=== PATIENT | male | born 1945 | race Caucasian/White ===

== ENCOUNTER → 2017-01-04 | Outpatient (CLI) | payer BC ==
[~2017-01-04] MED LIST: FSM70 PO; OMEG10007 PO; OPTIRAY 320 IV PRN; VIT; VITAMIN E PO; vitamin D PO
--- NOTE | 2017-01-04 12:03 | DIAGNOSTIC IMAGING REPORT ---
ABD/PELVIS COMBO CLINICAL HISTORY: 71 years-old Male presenting with HX RENAL CA, F/U. TECHNIQUE: Multidetector CT of the abdomen and pelvis was performed before and after the administration of intravenous contrast. IV contrast: 93 mL of Optiray 320. A dose lowering technique was used consistent with the principles of ALARA (as low as reasonably achievable). COMPARISON: 01/16/2016. CT DOSE (mGy.cm): The estimated cumulative dose is 1122.53 mGycm. FINDINGS: Ship/Rec/Doc Control topogram: Cholecystectomy clips noted. Lung bases: Dependent groundglass opacity likely atelectasis. Old calcified granuloma at the left lung base. Normal heart size. No pericardial or pleural effusion. Liver: Normal morphology. Small subcapsular hypodensity medially at the inferior right hepatic lobe may be postsurgical in etiology from retraction injury (series 5 image 147). No liver lesion. Patent hepatic vasculature. Biliary: Mild central intrahepatic or ductal prominence. No extra hepatic biliary ductal dilatation. This may be compatible with a reservoir effect in the post cholecystectomy state. Gallbladder surgically absent. Pancreas: Normal. Spleen: Scattered parenchymal calcifications likely indicate prior granulomatous disease. Adrenal glands: Nodular thickening of the left adrenal gland, nonspecific. Right adrenal gland normal. Kidneys and ureters: No nephrolithiasis. Cortical defect at the anterior aspect of the interpolar region of the right kidney compatible with postsurgical changes from partial right nephrectomy. No evidence of residual or recurrent disease. No new renal mass. Tiny hypodensity in the left kidney is too small to characterize but likely cyst. No hydronephrosis. Bladder: Apparent bladder wall thickening at the dome. This may be due to underdistention or suggestive of chronic outlet obstruction. Pelvic organs: Prostate enlargement likely secondary to benign prostatic hyperplasia. Bowel: Suture margin noted in the sigmoid colon from prior partial colectomy. Limited diverticulosis in the descending colon. Small bowel anastomosis noted in the right mid abdomen, which is widely patent. No bowel obstruction. Peritoneal cavity: No free fluid or intraperitoneal gas. Vasculature: Aorta and IVC patent and normal in caliber. Lymph nodes: No enlarged lymph nodes in the abdomen or pelvis. Abdominal wall: Postsurgical changes in the right upper quadrant of the ventral abdominal wall. Musculoskeletal: Degenerative changes of the spine. Sclerosis of the left pubis subjacent to the pubic symphysis unchanged and likely degenerative in etiology. IMPRESSION: 1. Postsurgical changes of partial right nephrectomy are no evidence of residual or recurrent disease. No lymphadenopathy. 2. Prostatomegaly. 3. Suggestion of chronic bladder outlet obstruction. 4. Postsurgical changes of the bowel with patent colocolonic and enteroenteric anastomoses. 5. Splenic calcifications likely indicate prior granulomatous disease. Electronically signed by: Kale Grossman M.D. 01/04/2017 12:02 PM Dictated Date/Time: 01/04/2017 11:52 AM
== END | disposition home or self-care (01) ==
LOC: C.CTS 11:12
PROVIDERS: ATTEND Urology
DX: Z85.528 Personal history of other malignant neoplasm of kidney (principal)

== ENCOUNTER → 2017-02-09 | Outpatient (CLI) | payer BC ==
[~2017-02-09] MED LIST changes: -OPTIRAY 320 IV PRN
--- NOTE | 2017-02-09 15:29 | DIAGNOSTIC IMAGING REPORT ---
MRI LEFT SHOULDER NO CONTRAST CLINICAL HISTORY: Right shoulder pain, weakness, history of trauma. COMPARISON STUDY: Conventional radiographic study dated 02/01/2017 FINDINGS: Imaging was performed in the sagittal, coronal, and axial planes. There are no areas of marrow replacement to indicate occult fracture. There are subchondral cysts within the humeral head. There is a full-thickness supraspinatus tear with 17 mm of tendinous retraction. There is fluid within the subacromial bursa. There is fluid within the subscapularis bursa. There is minimal infraspinatus muscular edema and there is marked infraspinatus tendinopathy. There is subluxation of the bicipital tendon which appears partially torn. IMPRESSION: 1. Full-thickness rotator cuff tear with tendinous retraction 2. Subluxation of the bicipital tendon which appears attenuated at least partially torn Electronically signed by: Reagan Sanford M.D. 02/09/2017 3:28 PM Dictated Date/Time: 02/09/2017 3:24 PM
== END | disposition home or self-care (01) ==
LOC: C.MRIBC 14:29
PROVIDERS: ATTEND Orthopaedic Surgery
DX: M75.102 Unspecified rotator cuff tear or rupture of left shoulder, not specified as traumatic (principal)

== ENCOUNTER → 2017-03-04 | Day surgery (SDC) | payer BC ==
[2017-03-02 15:37] LABS: BASO % 0.1 %; BASO ABS # 0.01 K/uL (0-0.2); COMPLETE YES; EOS % 1.4 %; HEMATOCRIT 43.3 % (42-52); IG% 0.3 %; LYMPH % 16.9 %; LYMPH ABS # 1.25 K/uL (1.2-3.4); MEAN CELL VOLUME 88.4 fL (80-100); MEAN CORPUSCULAR HEMOGLOBIN 30.8 pg (25-34); MEAN CORPUSCULAR HGB CONC 34.9 g/dl (32-36); MEAN PLATELET VOLUME 9.3 fL (7.4-10.4); MONO % 5.1 %; NEUT % 76.2 %; PLATELET COUNT 212 K/uL (130-400); WHITE BLOOD COUNT 7.39 K/uL (4.8-10.8)
[2017-03-02 16:06] LABS: BLOOD UREA NITROGEN 17 mg/dl (7-18); BUN/CREATININE RATIO 18.9 (10-20); CALCIUM 8.5 mg/dl (8.5-10.1); CARBON DIOXIDE 30 mmol/L (21-32); CHLORIDE 106 mmol/L (98-107); CREATININE 0.89 mg/dl (0.60-1.40); GLUCOSE 143 mg/dl (70-99); POTASSIUM 3.8 mmol/L (3.5-5.1); SODIUM 141 mmol/L (136-145)
[2017-03-03 14:36] VITALS: Ht 180.3 cm; Wt 72.7 kg
[~2017-03-04] VITALS: Ht 180.3 cm; Wt 72.7 kg
[~2017-03-04] MED LIST changes: +ATROPINE SULFATE 0.1 MG/ML 5ML SYR IV PRN; +BUPIVACAINE/EPINEPHRINE 0.25% 1:200,000 30 ML VIAL ONE; +CEFAZOLIN 1000MG IV PUSH 5 ML IV SCH; +CHECK SCOPOLAMINE PATCH PLACEMENT SCH; +DEXAMETHASONE SOD INJ 4 MG/ML VIAL ONE; +EpHEDrine SULFATE INJ 50 MG/ML AMP IV PRN; +EpINEphrine INJ 1MG/ML AMP 1 MG/ML AMP ONE; +FENTANYL CITRATE INJ 50 MCG/1 ML 2 ML VIAL IV PRN; +FENTANYL CITRATE INJ 50 MCG/1 ML 2 ML VIAL ONE; +FINA5TAB PO; +FLM4 PO; -FSM70 PO; +HYDR-5688 PO; +HYDROCODONE/ACETAMOPHEN 5/325MG TAB PO PRN; +HYDROmorphone INJ 1 MG/ML SYR IV PRN; +KETO10TA PO; +LABETALOL HCL IV 5 MG/ML 20ML IV PRN; +LACTATED RINGER'S 1000ML 1,000 ML IV SCH; +LIDOCAINE HCL 2% 2 ML VIAL (20MG/ML) ONE; +MIDAZOLAM HCL 1 MG/ML 2ML VIAL ONE; +ONDA4TAB46 PO; +ONDANSETRON INJ 2 MG/ML 2 ML VIAL IV PRN; +ONDANSETRON INJ 2 MG/ML 2 ML VIAL ONE; +PHENYLEPHRINE 100MCG/ML 5ML SYR IV PRN; +PROMETHAZINE HCL INJ 12.5 MG in SODIUM CHLORIDE 0.9% 50ML 50 ML IV PRN; +PROPOFOL IV EMULSION 10 MG/ML 20 ML VIAL IV ONE; +ROPIVACAINE 0.5% 5 MG/ML 30 ML VIAL ONE; +SCOPOLAMINE 1.5 MG TDSY TD ONE; +SCOPOLAMINE 1.5 MG TDSY TD SCH; +SODIUM CHLORIDE 0.9% 1000ML 1,000 ML IV SCH; +TIMO0.05 OPL; -VIT; -VITAMIN E PO; -vitamin D PO
--- NOTE | 2017-03-04 07:02 | History & Physical Bridge - SC ---
H&P Re-Evaluation Bridge Note: I have examined the patient, reviewed the History & Physical and in the interval since the performance of the History & Physical I have noted the following changes of clinical significance: No changes noted
--- NOTE | 2017-03-04 13:30 | Discharge Instructions-SurgCtr ---
Discharge Instructions Date of Service Mar 04, 2017. Visit Reason for Visit: Left Shoulder Full Thickness Rotator Cuff Tear Discharge Discharge Diagnosis / Problem: SAME ABOVE Discharge Goals Goal(s): Decrease discomfort, Improve function Activity Recommendations Activity Limitations: as noted below Lifting Limitations: until after follow-up appointment Exercise/Sports Limitations: until after follow-up appointment Shower/Bathe: tomorrow Anesthesia . Post Anesthesia Instructions: If you have had General Anesthesia or IV Sedation: * Do not drive today. * Resume driving when surgeon permits. * Do not make important decisions or sign legal documents today. * Call surgeon for: 1. Temperature elevations greater than 101 degrees F. 2. Uncontrollable pain. 3. Excessive bleeding. 4. Persistent nausea and vomiting. 5. Medication intolerance (nausea, vomiting or rash). * For nausea and vomiting use only clear liquids such as: tea, soda, bouillon until nausea subsides, then gradually increase diet as tolerated. * If you have any concerns or questions, call your surgeon's office. If physician is unavailable and it is an emergency, call 911 or go to the nearest emergency room. . Instructions / Follow-Up Instructions / Follow-Up MEDICATIONS: * Resume previous medications unless instructed otherwise by your surgeon. * Always take pain medication on a full stomach or with food to avoid upset stomach. * Do not drink alcohol or drive while taking narcotics. * Ibuprofen or Tylenol may be taken if narcotic not needed. SPECIAL CARE INSTRUCTIONS: __ None _X_ Keep extremity elevated and iced x 48 hours; apply ice 20-30 minutes 8-10 times/day. May remove at night. __ Sling __24 hrs/day __ Remove at night _X_ Shoulder Immobilizer (MAY REMOVE AFTER 48 HOURS ONLY TO SHOWER AND FOR THERAPY) X __ 24 hrs/day __ Remove at night _X_ Dressing __ Maintain until seen in office, may shower with plastic over site _X_ Remove dressings in 24-48 hours and then may shower _X_ Cover incisions with band-aids after showering __ Do not remove steri-strips Call physician if chills or temperature rises above 102 degrees or pain unrelieved by prescribed pain medications at . . Diet Recommendations Home Diet: no limitations Fluid Restriction: None Procedures Procedures Performed: Left ShoulderArthroscopy Large Rotator Cuff Repair, Biceps Tenodesis, Acromioplasty Pending Studies Studies pending at discharge: no Work Instructions Return To Work: after follow-up Medical Emergencies . Who to Call and When: Medical Emergencies: If at any time you feel your situation is an emergency, please call 911 immediately. . Non-Emergent Contact Non-Emergency issues call your: Primary Care Provider Call Non-Emergent contact if: you have a fever, temperature is above 101.5 . . "Provider Documentation" section prepared by Fahad Elmore. .
--- NOTE | 2017-03-04 13:42 | [facility] Post Operative Brief Note ---
Immediate Operative Summary Operative Date Mar 04, 2017. Pre-Operative Diagnosis Left Shoulder Full Thickness Rotator Cuff Tear. Post-Operative Diagnosis Same Procedure(s) Performed Left ShoulderArthroscopy Large Rotator Cuff Repair, Biceps Tenodesis, Acromioplasty Surgeon Dr. Marianne Centeno Guest Services Agent Surgeon(s) Humza Elmore PA-C Estimated Blood Loss 5 ml Findings as above Specimens None Complication(s) None Disposition Recovery Room / PACU
[2017-03-04 13:57] VITALS: TEMP 36.4
--- NOTE | 2017-03-04 14:49 | Anesthesia Progress Nt - [facility] ---
Anesthesia Post Op Note Date & Time Mar 04, 2017 at 14:49 Vital Signs Pain Intensity: 0 Vital Signs Past 12 Hours Date Time Temp Pulse Resp B/P (MAP) Pulse Ox O2 Delivery O2 Flow Rate FiO2 03/04/17 13:57 36.4 81 16 137/88 (104) 96 Room Air 03/04/17 13:47 75 12 95 03/04/17 13:47 36.5 75 12 03/04/17 13:45 141/90 03/04/17 13:42 83 12 100 03/04/17 13:42 83 12 03/04/17 13:40 145/93 03/04/17 13:37 85 15 99 03/04/17 13:37 87 15 03/04/17 13:35 151/97 03/04/17 13:32 83 14 03/04/17 13:32 83 14 99 03/04/17 13:30 148/93 03/04/17 13:27 76 11 03/04/17 13:27 77 11 100 03/04/17 13:25 136/95 03/04/17 13:22 79 15 135/87 100 03/04/17 13:22 78 15 03/04/17 13:21 154/145 03/04/17 13:18 36.1 87 12 146/86 97 Mask 6 03/04/17 13:18 146/86 03/04/17 11:27 11 03/04/17 11:26 73 8 97 03/04/17 11:26 72 03/04/17 11:25 125/79 03/04/17 11:21 74 03/04/17 11:21 73 4 96 03/04/17 11:20 75 6 123/75 97 03/04/17 11:20 76 03/04/17 11:15 82 03/04/17 11:15 82 15 123/89 97 03/04/17 11:10 0 03/04/17 11:05 0 03/04/17 10:40 36.6 79 18 133/85 (101) 96 Room Air Notes Mental Status: alert / awake / arousable, participated in evaluation Pt Amnestic to Procedure: Yes Nausea / Vomiting: adequately controlled Pain: adequately controlled Airway Patency, RR, SpO2: stable & adequate BP & HR: stable & adequate Hydration State: stable & adequate Anesthetic Complications: no major complications apparent Doing well. Pain controlled. Nausea improved after medication. VSS. Ready for d/ c
[2017-03-04 15:21] VITALS: BP 139/85; PULSE 72; O2SAT 96
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
== END | disposition home or self-care (01) ==
LOC: X.SURG 10:31
PROVIDERS: ATTEND Orthopaedic Surgery
DX: S46.012A Strain of muscle(s) and tendon(s) of the rotator cuff of left shoulder, initial encounter (principal); V19.3XXA Pedal cyclist (driver) (passenger) injured in unspecified nontraffic accident, initial encounter; Z85.528 Personal history of other malignant neoplasm of kidney; Z98.890 Other specified postprocedural states; Z90.49 Acquired absence of other specified parts of digestive tract; Z90.5 Acquired absence of kidney

== ENCOUNTER → 2018-01-06 | Outpatient (CLI) | payer BC ==
[~2018-01-06] MED LIST changes: -ATROPINE SULFATE 0.1 MG/ML 5ML SYR IV PRN; -BUPIVACAINE/EPINEPHRINE 0.25% 1:200,000 30 ML VIAL ONE; -CEFAZOLIN 1000MG IV PUSH 5 ML IV SCH; -CHECK SCOPOLAMINE PATCH PLACEMENT SCH; -DEXAMETHASONE SOD INJ 4 MG/ML VIAL ONE; -EpHEDrine SULFATE INJ 50 MG/ML AMP IV PRN; -EpINEphrine INJ 1MG/ML AMP 1 MG/ML AMP ONE; -FENTANYL CITRATE INJ 50 MCG/1 ML 2 ML VIAL IV PRN; -FENTANYL CITRATE INJ 50 MCG/1 ML 2 ML VIAL ONE; -HYDR-5688 PO; -HYDROCODONE/ACETAMOPHEN 5/325MG TAB PO PRN; -HYDROmorphone INJ 1 MG/ML SYR IV PRN; -KETO10TA PO; -LABETALOL HCL IV 5 MG/ML 20ML IV PRN; -LACTATED RINGER'S 1000ML 1,000 ML IV SCH; -LIDOCAINE HCL 2% 2 ML VIAL (20MG/ML) ONE; -MIDAZOLAM HCL 1 MG/ML 2ML VIAL ONE; -ONDA4TAB46 PO; -ONDANSETRON INJ 2 MG/ML 2 ML VIAL IV PRN; -ONDANSETRON INJ 2 MG/ML 2 ML VIAL ONE; -PHENYLEPHRINE 100MCG/ML 5ML SYR IV PRN; -PROMETHAZINE HCL INJ 12.5 MG in SODIUM CHLORIDE 0.9% 50ML 50 ML IV PRN; -PROPOFOL IV EMULSION 10 MG/ML 20 ML VIAL IV ONE; -ROPIVACAINE 0.5% 5 MG/ML 30 ML VIAL ONE; -SCOPOLAMINE 1.5 MG TDSY TD ONE; -SCOPOLAMINE 1.5 MG TDSY TD SCH; -SODIUM CHLORIDE 0.9% 1000ML 1,000 ML IV SCH; -TIMO0.05 OPL; +TIMO0.2518 OPL
--- NOTE | 2018-01-06 09:36 | DIAGNOSTIC IMAGING REPORT ---
CT SCAN OF THE ABDOMEN AND PELVIS COMBO RENAL MASS PROTOCOL CLINICAL HISTORY: Renal cell carcinoma. COMPARISON STUDY: Abdominal CT scans dated 01/04/2017 and 01/16/2016. TECHNIQUE: Before and following the IV administration of 93 cc of Optiray 320, CT scan of the abdomen and pelvis is performed from the lung bases to the proximal femora using the renal mass protocol. Images are reviewed in the axial, sagittal, and coronal planes. IV contrast was administered without complication. A dose lowering technique was utilized adhering to the principles of ALARA. CT DOSE: 1380.70 mGycm FINDINGS: Lung bases: The heart is normal in size and without pericardial effusion. The lung bases are clear noting dependent atelectasis. Liver: The contrast-enhanced liver is normal in size, contour, and attenuation. There is no intrahepatic biliary ductal dilatation. The hepatic veins and portal veins are patent. Gallbladder: Surgically absent noting clips in the gallbladder fossa. Spleen: Normal in size and attenuation. There are numerous calcified splenic granulomas. Pancreas: Unremarkable. Adrenal glands: An 8 mm left adrenal nodule meets CT criteria for a fat-containing adenoma. This is unchanged. The right adrenal gland is normal as imaged. Kidneys: No renal calculi are identified on the unenhanced series. The contrast enhanced kidneys are normal in size and without hydronephrosis. The kidneys enhance and excrete symmetrically. There is postoperative change from partial nephrectomy in the lower pole of the right kidney. There is no evidence of recurrent or enhancing mass lesion at the operative site. No enhancing lesion is seen in either kidney on today's examination. There is no evidence of urothelial lesion identified in the renal pelvis bilaterally or along the course of ureters. The mid to distal left ureter is not well opacified. Abdominal vasculature: The abdominal aorta is normal in course and caliber noting mild atherosclerotic calcification. 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 Bowel: There are postoperative changes from sigmoid colon resection with colonic anastomosis. A small bowel anastomosis is identified in the right mid abdomen. No bowel obstruction is seen. There is mild colonic diverticulosis without CT evidence of acute diverticulitis. The appendix is well-visualized and normal. Peritoneum: There is no intraperitoneal free air or abdominal ascites. Lymphadenopathy: None. Pelvic viscera: The prostate gland is enlarged and heterogeneous, measuring 6 cm in transverse diameter. There is median lobe hypertrophy. The bladder wall is thickened and trabeculated indicating chronic outlet obstruction. Skeletal structures: The skeletal structures are osteopenic. Mild lumbosacral spondylosis and scoliosis are observed. No lytic or blastic lesions are seen. IMPRESSION: 1. Again seen are postoperative changes from right partial nephrectomy. There is no evidence of recurrent or residual mass lesion at the operative site. 2. No enhancing cortical mass is seen in either kidney on today's examination. 3. There is no evidence of metastatic disease in the abdomen or pelvis. 4. There are postoperative changes from sigmoid colon resection with colonic anastomosis. No bowel obstruction is identified. 5. Prostatomegaly with evidence of chronic bladder outlet obstruction. 6. Additional findings as above. Electronically signed by: Edmundo Powers M.D. 01/06/2018 9:34 AM Dictated Date/Time: 01/06/2018 8:55 AM
== END | disposition home or self-care (01) ==
LOC: C.CTS 08:14
PROVIDERS: ATTEND Urology
DX: R97.20 Elevated prostate specific antigen [PSA] (principal); Z85.528 Personal history of other malignant neoplasm of kidney; N40.1 Benign prostatic hyperplasia with lower urinary tract symptoms